=== PATIENT | female | born 1960 | race Caucasian/White ===

== ENCOUNTER 2017-10-16 09:30 | Inpatient (IN) ==
[2017-10-08 16:07] LABS: Appearance,Urine CLOUDY; Bacteria,Urine FEW /hpf (0); Color,Urine AMBER; Glucose,Urine (UA) NEGATIVE (NEG); Leukocyte Esterase,Urine 25 /uL (NEG); Mucus,Urine MOD /hpf (0); Protein,Urine NEG (NEG); Specific Gravity,Urine 1.023 (1.000-1.035); Urine Amorphous Crystals FEW /hpf (0); Urine Blood NEG mg/dL (<0.03); Urine Hyaline Cast 104 /lpf (0-2); Urine RBC 3 /hpf (0-1); Urine Squamous Epithelial Cell 6 /hpf (0-4); Urine WBC 3 /hpf (0-4)
[2017-10-08 17:36] LABS: Basophils # (Auto) 0.1 K/mcL (0.0-0.3); Basophils % (Auto) 0.5 % (0.0-2.0); Eosinophils # (Auto) 0.1 K/mcL (0.0-0.7); Eosinophils % (Auto) 1.1 % (0.0-7.0); Granulocytes % (Auto) 54.1 % (38.0-78.0); Lymphocytes # (Auto) 3.8 K/mcL (1.5-4.8); Lymphocytes % (Auto) 37.5 % (15.5-49.0); Mean Cell Volume 85.3 fL (80.0-100.0); Mean Corpuscular HGB Conc 33.6 g/dL (31.0-36.0); Mean Corpuscular Hemoglobin 28.6 pg (26.0-34.0); Monocytes # (Auto) 0.7 K/mcL (0.1-0.9); Monocytes % (Auto) 6.8 % (1.0-12.0); Platelet Count 229 K/mcL (140-440); RBC 4.22 M/mcL (4.00-5.20)
[2017-10-08 17:40] LABS: Blood Urea Nitrogen 43 mg/dl (6-20)
[~2017-10-16 09:30] MED LIST: 0.9 % SODIUM CHLORIDE 9 ML, KETOROLAC 30 MG, ROPIVACAINE HCL/PF 49.5 ML, EPINEPHrine 0.... IJ SCH; ceFAZolin 1 GM VIAL IV SCH
[2017-10-16 10:37] LABS: Appearance,Urine CLEAR; Bilirubin,Urine NEG (NEG); Color,Urine STRAW; Glucose,Urine (UA) NEGATIVE (NEG); Leukocyte Esterase,Urine NEG /uL (NEG); Protein,Urine NEG (NEG); Specific Gravity,Urine 1.017 (1.000-1.035); Urine Blood NEG mg/dL (<0.03); Urobilinogen,Urine NEG (NEG)
[2017-10-16] MEDS ORDERED: KETAMINE 100 MG/ML ML IV ONE (14:40)
[2017-10-16] MEDS ORDERED: DEXAMETHASONE 10 MG/ML VIAL IV ONE (14:40)
[2017-10-16] MEDS ORDERED: PHENYLEPHRINE 10 MG/ML VIAL IV ONE (14:40)
[2017-10-16] MEDS ORDERED: ROPIVACAINE HCL/PF 20 ML VIAL IJ ONE (14:40)
[2017-10-16] MEDS ORDERED: LIDOCAINE HCL/PF 100 MG/5 ML SYRINGE IV ONE (14:40)
[2017-10-16] MEDS ORDERED: MIDAZOLAM 2 MG/2 ML VIAL IV ONE (14:40)
[2017-10-16] MEDS ORDERED: ONDANSETRON 4 MG/2 ML VIAL IV ONE (14:40)
[2017-10-16] MEDS ORDERED: TRANEXAMIC ACID 1,000 MG/10 ML VIAL IV ONE ×2 (14:40→16:02)
[2017-10-16] MEDS ORDERED: GLYCOPYRROLATE 0.2 MG/ML VIAL IV ONE (14:40)
[2017-10-16] MEDS ORDERED: PROPOFOL 200 MG/20 ML VIAL IV ONE (14:40)
[2017-10-16] MEDS ORDERED: fentaNYL 100 MCG/2 ML VIAL IV PRN (14:50)
[2017-10-16] MEDS ORDERED: ACETAMINOPHEN 1,000 MG/100 ML BOTTLE IV ONE (14:50)
[2017-10-16] MEDS ORDERED: ONDANSETRON 4 MG/2 ML VIAL IV PRN ×2 (14:50→16:02)
[2017-10-16] MEDS ORDERED: BENZOCAINE/MENTHOL 1 LOZENGE PO PRN ×2 (14:50→16:02)
[2017-10-16] MEDS ORDERED: MEPERIDINE 25 MG/ML SYRINGE IV PRN (14:50)
[2017-10-16] MEDS ORDERED: FLUMAZENIL 0.1 MG/ML ML IV PRN (14:50)
[2017-10-16] MEDS ORDERED: LACTATED RINGERS 250 ML IV PRN (14:50)
[2017-10-16] MEDS ORDERED: IPRATROPIUM/ALBUTEROL 3 ML AMPUL.NEB NEB PRN (14:50)
[2017-10-16] MEDS ORDERED: NALOXONE HCL 0.4 MG/ML VIAL IV PRN (14:50)
[2017-10-16] MEDS ORDERED: METHOCARBAMOL 1,000 MG/10 ML VIAL IV PRN (14:50)
[2017-10-16] MEDS ORDERED: LACTATED RINGERS 1,000 ML IV SCH (15:00)
[2017-10-16] MEDS ORDERED: GENTAMICIN SULFATE 800 MG/20 ML VIAL IR ONE (15:14)
[2017-10-16] MEDS ORDERED: FLEETS ADULT ENEMA PR PRN (16:02)
[2017-10-16] MEDS ORDERED: MAGNESIUM HYDROXIDE 30 ML ORAL.SUSP PO PRN (16:02)
[2017-10-16] MEDS ORDERED: BISACODYL 10 MG SUPP.RECT PR PRN (16:02)
[2017-10-16] MEDS ORDERED: POLYETHYLENE GLYCOL 3350 17 GM PACKET PO PRN (16:02)
--- NOTE | 2017-10-16 16:17 | Brief Operative Note ---
Date of procedure: 10/16/17 Pre-op diagnosis: DJD right knee Post-op diagnosis: same Procedure: R TKR Grafts/Implants: Yes (Attune PS S+) Anesthesia: ODILIAA Surgeon: German Galeana Powerhouse Tender: Jerry Turcios Estimated blood loss (cc): 100 Tourniquet Time (Minutes): 50 Specimens Removed/Pathology: none sent Condition: stable Disposition: PACU
--- NOTE | 2017-10-16 17:01 | XRay Report ---
HISTORY: Reason for Exam:Post-op total knee. FINDINGS: There is a well positioned total knee prosthesis. No fracture is present. Lateral view shows a 2 mm soft tissue calcification in the region of the suprapatellar bursa. IMPRESSION: Well-positioned right knee prosthesis Interpreted and Authenticated by: Alon Junior 10/16/17
[2017-10-16] MEDS: 0.45 % SODIUM CHLORIDE 1,000 ML IV SCH (17:51)
[2017-10-16] MEDS: PANTOPRAZOLE 40 MG TABLET PO SCH (17:52)
[2017-10-16] MEDS: HYDROcodone/APAP 10/325MG TABLET PO PRN ×3 (19:04→23:16)
[2017-10-16] MEDS: METHOCARBAMOL 1,000 MG/10 ML VIAL IV PRN (21:44)
[2017-10-16] MEDS: ceFAZolin 1 GM VIAL IV SCH (21:47)
[2017-10-16] MEDS: SENNOSIDES 1 TABLET PO SCH (21:48)
[2017-10-16] MEDS: PREGABALIN 75 MG CAPSULE PO SCH (21:48)
[2017-10-16] MEDS: DOCUSATE SODIUM 100 MG CAPSULE PO SCH (21:49)
[2017-10-16] MEDS: ASPIRIN 325 MG ENTERIC COATED TABLET PO SCH (21:49)
[2017-10-16] MEDS: 0.9 % SODIUM CHLORIDE 10 ML SYRINGE IV SCH (21:58)
[2017-10-17] MEDS: HYDROcodone/APAP 10/325MG TABLET PO PRN ×2 (03:30→07:15)
[2017-10-17] MEDS: 0.45 % SODIUM CHLORIDE 1,000 ML IV SCH (03:55)
[2017-10-17] MEDS: ceFAZolin 1 GM VIAL IV SCH (05:56)
[2017-10-17] MEDS: 0.9 % SODIUM CHLORIDE 10 ML SYRINGE IV SCH ×3 (05:57→22:06)
[2017-10-17] MEDS: ASPIRIN 325 MG ENTERIC COATED TABLET PO SCH ×2 (07:13→20:18)
[2017-10-17] MEDS: FERROUS SULFATE 325 MG TABLET PO SCH (07:13)
[2017-10-17] MEDS: LISINOPRIL 20 MG TABLET PO SCH (07:13)
[2017-10-17] MEDS: PANTOPRAZOLE 40 MG TABLET PO SCH ×2 (07:13→15:53)
[2017-10-17] MEDS: DULoxetine 30 MG CAPSULE PO SCH (07:13)
[2017-10-17] MEDS: DOCUSATE SODIUM 100 MG CAPSULE PO SCH ×2 (07:13→20:18)
[2017-10-17] MEDS: PREGABALIN 75 MG CAPSULE PO SCH ×2 (07:13→20:19)
[2017-10-17] MEDS: METHOCARBAMOL 1,000 MG/10 ML VIAL IV PRN (07:13)
--- NOTE | 2017-10-17 07:59 | Orthopedic Progress Note ---
Subjective Patient information: Note initiated : 10/17/17 at 7:57 am Service Date, if different from initiated Date: [] Patient: Salma Miguel 57 y/o F admitted on 10/16/17 for Right Total Knee Arthroplasty. Chief Complaint: [] Interval history: Patient is doing well this morning and working with PT. Otherwise pain is okay. Denies any other acute symptoms. Objective Vital signs: Vital Signs Temp Pulse Resp BP Pulse Ox 10/17/17 07:00 97.3 F 18 111/70 95 10/17/17 03:57 98.6 F 75 12 119/70 94 10/17/17 00:00 98.1 F 83 20 124/77 97 10/16/17 20:38 65 98/65 100 10/16/17 19:39 62 124/78 100 10/16/17 19:08 97.2 F 71 12 121/74 100 10/16/17 19:03 65 130/76 99 10/16/17 18:38 66 114/82 98 10/16/17 18:24 52 L 112/71 96 10/16/17 18:08 68 111/67 88 L 10/16/17 17:53 64 107/75 96 10/16/17 17:38 68 104/71 100 10/16/17 17:12 96.3 F L 76 9 L 102/57 98 10/16/17 16:55 97.3 F 76 10 L 92/54 99 10/16/17 16:45 97.3 F 78 10 L 106/64 100 10/16/17 16:35 98.2 F 76 8 L 95/54 100 10/16/17 16:30 76 8 L 96/49 100 10/16/17 16:25 77 8 L 91/43 100 10/16/17 16:22 98.3 F 80 10 L 93/46 99 10/16/17 09:37 97.6 F 91 H 18 120/72 98 Intake and Output 10/16/17 10/17/17 10/17/17 21:59 05:59 13:59 Intake Total 1800 / 1800 2110 / 2110 1000 / 1000 Output Total 900 / 900 515 / 515 150 / 150 Balance 900 / 900 1595 / 1595 850 / 850 Intake: IV 100 / 100 1000 / 1000 Sodium Chloride 0.45% 1,000 ml 1000 / 1000 @ 100 mls/hr IV .Q10H [facility] Rx#: [id number] Oral 2109 IV - Manual Only 1700 / 1700 Output: Urine Catheter Amount 800 / 800 Straight 800 / 800 Void Amount 515 / 515 150 / 150 Estimated Blood Loss 100 / 100 Other: Meal Chicken Noodle Soup Percent of Meal Consumed 100% # Voids 350 Weight 240 lb Intake & Output: Intake & Output 10/16/17 10/17/17 10/17/17 21:59 05:59 13:59 Intake Total 1800 / 1800 2109 1000 / 1000 Output Total 900 / 900 515 / 515 150 / 150 Balance 900 / 900 1595 / 1595 850 / 850 Weight 240 lb Intake: IV 100 / 100 1000 / 1000 Sodium Chloride 0.45% 1,000 ml 1000 / 1000 @ 100 mls/hr IV .Q10H [facility] Rx#: [id number] Oral 2109 IV - Manual Only 1700 / 1700 Output: Urine Catheter Amount 800 / 800 Straight 800 / 800 Void Amount 515 / 515 150 / 150 Estimated Blood Loss 100 / 100 Other: Meal Chicken Noodle Soup Percent of Meal Consumed 100% # Voids 350 Incision clean and dry: Yes Dressing: Yes clean, Yes dry, Yes intact Weight bearing status: full Neurological exam IM: Yes neurovascular intact Extremities exam IM: No calf tenderness, Yes Foot pink and warm, Yes neurovascular intact - Labs CBC & BMP: 10/17/17 04:26 10/08/17 14:29 Labs: Orthopedic Labs 10/16/17 10/08/17 09:46 14:29 POC PT 11.8 L PT TNP POC INR 1.0 INR TNP 10/17/17 10/08/17 04:26 14:29 Hgb 12.1 Hct 28.4 L 36.0 Assessment and Plan (1) Status post total right knee replacement continue pain control and PT Plan to discharge in 1-2 days Status: Acute
--- NOTE | 2017-10-17 08:32 | Operative Note ---
DATE OF OPERATION: 10/16/2017 PREOPERATIVE DIAGNOSIS: Degenerative joint disease of the right knee. POSTOPERATIVE DIAGNOSIS: Degenerative joint disease of the right knee. OPERATION: Right total knee replacement. SURGEON: German Galeana M.D. PASTING MACHINE OPERATOR: Jeryr Turcios PA-C. ANESTHESIA: General. TOURNIQUET TIME: 50 minutes. ESTIMATED BLOOD LOSS: 250 mL. SUMMARY OF PROCEDURE: General anesthesia was attained. The right leg was prepped and draped. A thigh-level tourniquet was put up. A midline incision was made from the quadriceps to the tibial tubercle. It was taken down through the subcutaneous fat. The quadriceps and medial retinaculum were identified. These were split longitudinally. The anterior menisci were resected. The patella was mobilized laterally. A medial release was done with care being taken to protect the medial collateral ligament. The anterior medial meniscus was resected. The ACL was released. The knee was flexed. The intramedullary canal of the femur was drilled and then reamed. The distal femoral cutting guide was placed. The distal femoral cut was made. Attention was then turned to the tibia. The tibia was drilled and then reamed. The proximal tibial cutting guide was placed. The alignment was confirmed as satisfactory. The cut was made 3 mm below the low point medially. The cut aspect of the bone was removed. We then balanced the flexion and extension gaps using trials. No releases were needed. The femur was next sized. The femur was cut in 3 degrees of external rotation which matched the rotation found at [place] line. The anterior, posterior and bevel cuts were made for a size 5 femur. The notch preparation was then done with a saw. The tibia was next prepared. The canal was reamed and then broached. The best combination of stability with full flexion and extension was with an 8 mm poly component. The patella was everted. Using a caliper, we did a measured resection of 10 mm, leaving 15 mm of patella. The patella sized to a 35. Excess patella was removed laterally with a saw blade. A trial reduction was done with the patella and the no-touch test showed a lateral release was not needed. The joint surfaces were thoroughly irrigated. The components were cemented in. The knee was left in full extension to let the cement cure. Excess cement was removed. After the cement had hardened, the tourniquet was let down. All bleeding points were coagulated. The quadriceps was closed in two layers using [id number] sutures of #2 FiberWire, followed by a running locking Maxon. The knee retinaculum was closed using the same technique. The subcutaneous tissue was closed with interrupted buried 2-0 Monocryl. The skin was closed with Dura-Amaro. During the case, the knee was injected throughout with multimodal solution prepared by the pharmacy for postoperative analgesia. The knee was dressed in a compressive dressing. The patient awoke without difficulty. She was taken to the recovery room in stable condition. The sponge and needle count was correct. CORNELLF:steph Job ID: [id number] Doc ID: [id number] German Galeana MD
[2017-10-17] MEDS: oxyCODONE/APAP 10/325MG TABLET PO PRN ×3 (11:09→20:18)
[2017-10-17] MEDS: METHOCARBAMOL 750 MG TABLET PO PRN ×2 (14:02→20:19)
[2017-10-17] MEDS: SENNOSIDES 1 TABLET PO SCH (20:19)
[2017-10-18] MEDS: oxyCODONE/APAP 10/325MG TABLET PO PRN ×2 (00:51→08:21)
[2017-10-18] MEDS: METHOCARBAMOL 750 MG TABLET PO PRN ×2 (02:36→08:20)
[2017-10-18] MEDS: 0.9 % SODIUM CHLORIDE 10 ML SYRINGE IV SCH (05:14)
[2017-10-18] MEDS: PREGABALIN 75 MG CAPSULE PO SCH (08:20)
[2017-10-18] MEDS: FERROUS SULFATE 325 MG TABLET PO SCH (08:20)
[2017-10-18] MEDS: PANTOPRAZOLE 40 MG TABLET PO SCH (08:20)
[2017-10-18] MEDS: DULoxetine 30 MG CAPSULE PO SCH (08:20)
[2017-10-18] MEDS: DOCUSATE SODIUM 100 MG CAPSULE PO SCH (08:20)
[2017-10-18] MEDS: LISINOPRIL 20 MG TABLET PO SCH (08:21)
[2017-10-18] MEDS: ASPIRIN 325 MG ENTERIC COATED TABLET PO SCH (08:21)
--- NOTE | 2017-10-18 09:14 | Discharge Summary ---
Ortho Discharge Plan - General - Patient Instructions Diet: Regular Diet Activity: activity as tolerated Dressing Care: Yolanda Ag - leave on for 5 days Patient Education: Total Knee Replacement (DC) Additional Instructions: Discharge Instructions: [facility] [phone] Your first appointment will be at the [place] office ([address] [place] [address] ) on FridayOctober 20 @ 4:00pm. (Due to the [place] Therapist/out of town) Your following appointments will be at [facility]. Do the exercises at home that physical therapy gave you. Take your photo ID, insurance cards, and current medication list with you to your first physical therapy appointment. Take your prescription to picker packer any medication or equipment (such as walker, crutches, toilet riser or C.P.M.) Wear comfortable clothing for your physical therapy. Weight bearing as tolerated. If you have Dermabond (a dressing with a mesh-like appearance), DO NOT remove mesh. Cover site daily with gauze dressing and beverly bandage. You may start showering on post op day #2. The Dermabond dressing can get wet, do not scrub dressing. Pat dry, then place new dressing (above). To avoid constipation while taking any narcotic pain medication, take an over the counter stool softener/laxative. Use your Cryocuff or ice packs as directed, on for 20 minutes at a time throughout the day. This and elevation will help with pain and swelling. Call your physician for fevers above 100.5 or pain not controlled by medication. Your prescriptions are with your discharge information. Some medications were electronically transmitted to your pharmacy of choice. Take Aspirin twice daily, for 30 days, as prescribed to prevent blood clots ( see medication list). - Follow Up Plan Disposition: Home, Self-Care Prognosis: Good Rehab Potential: Good I certify that the patient requires SNF services: No Overall status at discharge: patient is back to baseline - Orders For Discharge Additional Discharge Orders: Walker Location: None Selected
--- NOTE | 2017-10-18 09:21 | Discharge Summary ---
Providers - Providers Patient information: Note initiated : 10/18/17 at 9:19 am Service Date, if different from initiated Date: [] Patient: Salma Miguel 57 y/o F admitted on 10/16/17 for Right Total Knee Arthroplasty. Chief Complaint: [] Date of admission: 10/16/17 Discharge date: 10/18/17 Attending physician: German Galeana Hospitalization Hospital course: admitted 10/16 for TKR right. Discharge diagnosis: l total ankle replacement Reason for admission: l ankle arthritis Procedures: l ankle replacement Complications: None Exam - Exam Clean and dry: Yes Weight bearing status: partial Ortho Discharge Plan - General - Patient Instructions Diet: Regular Diet Activity: activity as tolerated Dressing Care: May shower in 3 days Patient Education: Oxycodone/Acetaminophen (By mouth), Aspirin (By mouth), Laxative, Stool Softeners (By mouth), Total Knee Replacement (DC) Additional Instructions: Discharge Instructions: Resume home diet as tolerated. Do the exercises at home that physical therapy gave you. Weight bearing as tolerated. Activity as tolerated. Follow up with [facility] (Jerry Turcios) on Friday, 10/27. Follow up with [facility] (Hadny Rinaldi) on 10/31 at 9:30 am. Contact the office on Friday morning, 10/20 to confirm these appointments. [phone]. Use your Cryocuff or ice packs as directed, on for 20 minutes at a time throughout the day. This and elevation will help with pain and swelling. Take your prescription, photo ID, insurance cards, and current medication list with you to your first physical therapy appointment. Physical therapy with [facility] in [place] on Friday 10/20 at 4:00pm. [phone]. After your first appointment, you will be at the [place] office. Wear comfortable clothing for your physical therapy. Take your prescription and photo id to fruit picker machine operator any medication or equipment ( such as walker, crutches, toilet riser or C.P.M.) Your prescriptions are with your discharge information. Some medications were electronically transmitted to your pharmacy of choice. You may shower. Change your dressing on Friday, with gauze and cover with SAIRA wrap. Starting Friday, you may leave it open to air. Wear saira wrap when upright. Pain medication can cause constipation. Take an [id number] stool softener while on pain medication. Take Aspirin 325 mg twice daily, for 30 days, as prescribed to prevent blood clots. Return to ER for fever, chills, uncontrolled pain, unable to go to the bathroom , nausea and/or vomiting, redness, swelling, bleeding, signs of infection, chest pain, shortness of breath, or other acute symptom. - Follow Up Plan Follow Up Appointments: German Galeana MD [Physician] - 10/31/17 9:30 am Jerry Turcios PA-C [Physician Community Health Nurse Supervisor] - 10/27/17 Disposition: Home, Self-Care Prognosis: Good Rehab Potential: Good I certify that the patient requires SNF services: No Overall status at discharge: patient is not back to baseline - Orders For Discharge Prescriptions: oxyCODONE/APAP [Percocet 10-325Mg] 1 - 2 tab PO Q6HP PRN #40 tab PRN Reason: Pain Level 3-6 Additional Discharge Orders: Physical Therapy at Discharge - [place] Location: None Selected Walker Location: None Selected Pending Studies Resuscitation Status Full Code Diet Regular Diet Start FriOct 16 1728 Aspirin (Ecotrin) 325 mg PO BID [facility] Last Admin: 10/18/17 08:21 Dose: 325 mg Admin: 10/17/17 20:18 Dose: 325 mg Admin: 10/17/17 07:13 Dose: 325 mg Admin: 10/16/17 21:49 Dose: 325 mg Docusate Sodium (Colace) 100 mg PO BID [facility] Last Admin: 10/18/17 08:20 Dose: 100 mg Admin: 10/17/17 20:18 Dose: 100 mg Admin: 10/17/17 07:13 Dose: 100 mg Admin: 10/16/17 21:49 Dose: 100 mg Duloxetine HCl (Cymbalta) 60 mg PO DAILY [facility] Last Admin: 10/18/17 08:20 Dose: 60 mg Admin: 10/17/17 07:13 Dose: 60 mg Ferrous Sulfate (Ferrous Sulfate) [address] [facility] Last Admin: 10/18/17 08:20 Dose: 325 mg Admin: 10/17/17 07:13 Dose: 325 mg Lisinopril (Zestril) 20 mg PO DAILY [facility] Last Admin: 10/18/17 08:21 Dose: 20 mg Admin: 10/17/17 07:13 Dose: 20 mg Methocarbamol (Robaxin) 750 mg PO Q6HP PRN PRN Reason: Muscle Spasm Last Admin: 10/18/17 08:20 Dose: 750 mg Admin: 10/18/17 02:36 Dose: 750 mg Admin: 10/17/17 20:19 Dose: 750 mg Admin: 10/17/17 14:02 Dose: 750 mg Morphine Sulfate (Morphine) 4 mg IV Q1HP PRN PRN Reason: PAIN LEVEL > 6 Last Admin: 10/17/17 01:21 Dose: 4 mg Admin: 10/16/17 21:39 Dose: 4 mg Admin: 10/16/17 19:05 Dose: 4 mg Oxycodone/Acetaminophen (Percocet 10-325mg) 1 - 2 tab PO Q4HP PRN PRN Reason: PAIN LEVEL 3-6 Last Admin: 10/18/17 08:21 Dose: 2 tab Admin: 10/18/17 00:51 Dose: 2 tab Admin: 10/17/17 20:18 Dose: 1 tab Admin: 10/17/17 15:53 Dose: 2 tab Admin: 10/17/17 11:09 Dose: 2 tab Pantoprazole Sodium (Protonix) 40 mg PO BIDAC [facility] Last Admin: 10/18/17 08:20 Dose: 40 mg Admin: 10/17/17 15:53 Dose: 40 mg Admin: 10/17/17 07:13 Dose: 40 mg Admin: 10/16/17 17:52 Dose: Not Given Polyethylene Glycol (Miralax) 17 gm PO DAILYP PRN PRN Reason: Constipation Last Admin: 10/18/17 08:21 Dose: 17 gm Pregabalin (Lyrica) 75 mg PO BID [facility] Last Admin: 10/18/17 08:20 Dose: 75 mg Admin: 10/17/17 20:19 Dose: 75 mg Admin: 10/17/17 07:13 Dose: 75 mg Admin: 10/16/17 21:48 Dose: 75 mg Senna (Senokot) 2 tab PO HS [facility] Last Admin: 10/17/17 20:19 Dose: 2 tab Admin: 10/16/17 21:48 Dose: 2 tab Sodium Chloride (Saline Flush) 10 ml IV Q8 [facility] Last Admin: 10/18/17 05:14 Dose: 10 ml Admin: 10/17/17 22:06 Dose: Admin: 10/17/17 13:53 Dose: 10 ml Admin: 10/17/17 05:57 Dose: 10 ml Admin: 10/16/17 21:58 Dose: Not Given Shift Summary 10/18/17 03:58 Shift Summary by Peggy Sanders A&O x 4. VSS. Medicated with oral pain medication x 3. Ice to knee x 3. Dressing changed this shift. Up with SBA and FWW to bathroom. Patient refused CPM machine use x 2. IV to left hand SL. Possible discharge today. Initialized on 10/18/17 03:58 - END OF NOTE
[2017-10-21 10:14] LABS: Cotinine 7 ng/mL; Nicotine <2 ng/mL
== END 2017-10-18 10:25 | disposition home or self-care (01) | DRG 470 ==
LOC: MEDSUR 09:30
PROVIDERS: ADMIT Orthopaedic Surgery Foot and Ankle Surgery; ATTEND Orthopaedic Surgery Foot and Ankle Surgery